=== PATIENT | female | born 1975 | race Caucasian/White ===

== ENCOUNTER 2016-09-13 09:51 | Emergency (ER) | payer OTHER ==
[2016-09-13 10:04] VITALS: BP 130/73
--- NOTE | 2016-09-13 10:15 | UC ---
Complaint Female HPI - HPI Summary HPI Summary: right flank pain since yesterday. No fever. Hx kidney stones. Never needed retrieval of stones. No urinary symptoms. - History Of Current Complaint Chief Complaint: UCGU Stated Complaint: RIGHT BACK PAIN Time Seen by Provider: 09/13/16 10:14 Hx Obtained From: Patient Hx Last Menstrual Period: N/A ?: No Onset/Duration: Gradual Onset, Lasting Days, Still Present Timing: Constant Severity Initially: Moderate Pain Intensity: 8 Pain Scale Used: 0-10 Numeric Character: Sharp Aggravating Factor(s): Nothing Alleviating Factor(s): Nothing Associated Signs And Symptoms: Negative: Fever, Back Pain, Vaginal Bleeding/ Discharge, Vaginal Discharge, Nausea, Vomiting(# Of Episodes =) Related Hx: Similar Episode/Dx as: - kidney stones - Risk Factors Ectopic Risk Factor: Negative Ovarian Torsion Risk Factor: Negative - Allergies/Home Medications Allergies/Adverse Reactions: Allergies Allergy/AdvReac Type Severity Reaction Status Date / Time Doxycycline AdvReac Intermediate Vomiting Verified 09/13/16 09:58 Erythromycin AdvReac Intermediate Vomiting Verified 09/13/16 09:58 CT DYE Allergy Itching Uncoded 09/13/16 09:58 PMH/Surg Hx/FS Hx/Imm Hx Cardiovascular History Of: Denies: Cardiac Disorders Respiratory History Of: Reports: COPD, Asthma GI/ History Of: Reports: Kidney Stones Neurological History Of: Reports: Migraine Psychological History Of: Reports: Anxiety, Depression - Surgical History Surgical History: Yes Surgery Procedure, Year, and Place: HYSTERECTOMY, FB RIGHT KNEE 03/2015. APPENDIX. KNEE 94' - Family History Known Family History: Positive: Cardiac Disease, Hypertension, Diabetes, Other - mom and sister postive for DVT - Social History Occupation: Employed Full-time Alcohol Use: None Substance Use Type: None Smoking Status (MU): Heavy Every Day Tobacco Smoker Type: Cigarettes Amount Used/How Often: 1 PPD Length of Time of Smoking/Using Tobacco: 18 YRS Have You Smoked in the Last Year: Yes Household Exposure Type: Cigarettes - Immunization History Most Recent Influenza Vaccination: 2016 Most Recent Tetanus Shot: 12/21/13 Most Recent Pneumonia Vaccination: none Review of Systems Constitutional: Negative Skin: Negative Eyes: Negative ENT: Negative Respiratory: Cough Cardiovascular: Negative Gastrointestinal: Negative Genitourinary: Negative Motor: Negative Neurovascular: Negative Musculoskeletal: Other: - right flank pain Neurological: Negative Psychological: Negative All Other Systems Reviewed And Are Negative: Yes Physical Exam Triage Information Reviewed: Yes Appearance: Well-Nourished, Ill-Appearing, Pain Distress Vital Signs: Initial Vital Signs Temp 99 F 09/13/16 09:59 Pulse 75 09/13/16 09:59 Resp 20 09/13/16 09:59 BP 130/73 09/13/16 09:59 Pulse Ox 98 09/13/16 09:59 Vital Signs Reviewed: Yes Eyes: Positive: Conjunctiva Clear ENT: Positive: Normal ENT inspection Neck: Positive: Supple, Nontender Respiratory: Positive: Lungs clear, Normal breath sounds, No respiratory distress Cardiovascular: Positive: RRR, No Murmur, Pulses Normal, Brisk Capillary Refill Abdomen Description: Positive: Nontender, Soft, CVA Tenderness (R). Negative: Distended, Guarding, McBurney's Point Tenderness, Peritoneal Signs, Pulsatile Mass Bowel Sounds: Positive: Present Musculoskeletal: Positive: Strength Intact, ROM Intact Neurological Exam: Normal Neurological: Positive: Alert, Muscle Tone Normal Psychological Exam: Normal Skin Exam: Normal Complaint Female Dx - Course Course Of Treatment: CT abd pelvis shows right lower lobe infiltrate. no hydronephrosis, no nephrolithiasis or ureterolithiasis. UA with blood and wbc' s. Will treat with levaquin that will treat pneumonia (infiltrate) and UTI. Pt advised of black box warning and QT prolongation. Advised to stop immediately if any side effects. - Differential Dx/Diagnosis Differential Diagnosis/HQI/PQRI: Renal Colic, Urinary Tract Infection, Other - pyelonephritis, pneumonia Provider Diagnoses: right lower lobe infiltrate. right flank pain. UTI. tobacco abuse disorder Discharge - Discharge Plan Condition: Stable Disposition: HOME Prescriptions: HYDROcodone/ACETAMIN 5-325 MG* [[place] 5-325 TAB*] 1 tab PO Q6H PRN #12 tab MDD 4 PRN Reason: Pain Levofloxacin TAB* [Levaquin TAB*] 750 mg PO DAILY #7 tab Patient Education Materials: Kidney Stones (ED), Urinary Tract Infection in Women (ED), Bacterial Pneumonia (ED) Forms: *Work Release Referrals: Braden Lawrence MD [Medical Doctor] - 7 Days No Primary Care Phys,NOPCP [Primary Care Provider] - Rahul Foreman MD [Medical Doctor] - 7 Days
[2016-09-13] MEDS ORDERED: Ketorolac INJ* 60 MG/2 ML VIAL ONE (10:22)
[2016-09-13] MEDS ORDERED: Ketorolac INJ* 60 MG/2 ML VIAL IM ONE (10:23)
[2016-09-13] MEDS ORDERED: Ondansetron ODT TAB* 4 MG PO ONE (10:28)
[2016-09-13] MEDS ORDERED: Ondansetron ODT TAB* 4 MG ONE (10:29)
--- NOTE | 2016-09-13 11:20 | RAD ---
INDICATION: Right flank abdominal pain. COMPARISON: Comparison is made with a prior CT of the abdomen and pelvis from June 03, 2016. TECHNIQUE: A CT scan of the abdomen and pelvis was performed without intravenous or oral contrast. Contiguous axial sections were obtained from the lung bases through the symphysis pubis. Images were reconstructed in the coronal and sagittal planes. FINDINGS: Images through the lung bases demonstrate a small infiltrate in the posterior aspect of the right lower lobe. No pleural effusion is seen. The liver appears mildly enlarged without significant focal abnormality on this noncontrast study. The spleen is within normal limits. No calcified gallstones are noted. The pancreas appears to be within normal limits. The adrenal glands and kidneys are normal in size. No renal calculi or hydronephrosis is seen. No ureteral or bladder calculi are seen. The aorta is normal in caliber with mild calcific plaque present. No significant enlarged retroperitoneal lymph nodes are seen. The stomach, small and large bowel appear nondistended. The patient is status post appendectomy by history. There is no evidence for diverticulitis or colitis. No free intraperitoneal air or fluid is seen. No significant focal osseous abnormality is seen. IMPRESSION: 1. SMALL RIGHT LOWER LOBE INFILTRATE. 2. NO EVIDENCE FOR ACUTE FINDING IN THE ABDOMEN.
== END 2016-09-13 11:56 | disposition home or self-care (01) ==
LOC: UCCORT 09:51
DX: R91.8 Other nonspecific abnormal finding of lung field (principal); N39.0 Urinary tract infection, site not specified; M54.9 Dorsalgia, unspecified; J44.9 Chronic obstructive pulmonary disease, unspecified; J45.998 Other asthma; F41.9 Anxiety disorder, unspecified; F33.8 Other recurrent depressive disorders; G43.909 Migraine, unspecified, not intractable, without status migrainosus; Z87.442 Personal history of urinary calculi; F17.210 Nicotine dependence, cigarettes, uncomplicated; Z91.041 Radiographic dye allergy status; Z88.1 Allergy status to other antibiotic agents
CPT/HCPCS: 74176; 87086; 99212; A9270-GY; G0463; J1885

== ENCOUNTER 2017-10-23 10:53 | Emergency (ER) | payer BC, OTHER | END 2017-10-23 21:50 | disposition left against medical advice (07) | LOC: UCCORT 10:53 | DX: N39.9 Disorder of urinary system, unspecified (principal); M54.9 Dorsalgia, unspecified; Z53.21 Procedure and treatment not carried out due to patient leaving prior to being seen by health care provider ==

== ENCOUNTER 2017-10-23 11:57 | Observation (INO) | payer BC, OTHER ==
[2017-10-23] MEDS ORDERED: HYDROmorphone INJ* 2 MG/ML CARPUJECT SYRINGE IV SLOW PU ONE ×3 (13:11→18:39)
[2017-10-23] MEDS ORDERED: Metoclopramide IV* 5 MG/ML 2 ML VIAL IV ONE (13:11)
--- NOTE | 2017-10-23 13:44 | ED ---
Back Pain - HPI Summary HPI Summary: Pt here w/ lower pelvic pain and urinary retention starting 2 days ago. Noticed incomplete emptying of her bladder 2 days ago - reports she was trying to change position to see if she could urinate more out but this did not help. Today, she's not been able to urinate at all - very painful. Denies this ever happening before and no symptoms of dysuria, urinary frequency leading up to this event. She has had Rt LE pain intermittently over the past 2 weeks as well - denies numbness, tingling, weakness here and no numbness when she wipes her herself. No fecal incontinence. She admits to central low back pain which is being worked up by her PCP - reports her pain was bad about 1 month ago so she went for an appointment. They provided her with flexeril which provided some relief. Since then she's been using heat which helps. An MRI was ordered 2 weeks ago by her [employer] (performed at [facility] - no results as of yet and no f/u appt scheduled - reports they were going to call her with results and she has not received them yet). We were able to attain the report - summary in Course of Treatment. No injury immediately before or after MRI Denies fever, chills, LEAL, neck pain, thoracic back pain, UE's numbness/tingling/ weakness, chest pain, shortness of breath, nausea, vomiting, diarrhea. She had abdominal pain. She admits to JOSE MIGUEL years ago - no issues w/ bladder incontinence, UTI's, vaginal infections, or fullness in vagina. Her JOSE MIGUEL was for endometriosis. She admits to dyspareunia past couple of months. No h/o cancer. Other ab sugery hx significant for hernia repair. No residual issues. She has asthma, dentures. No cardiac issues nor bleeding/clotting disorders. No previous issues with anesthesia. Med hx significant for psoriatic arthritis. Was on humira in the past but has not been on this for 2 years now - uses tanning bed to keep skin clear. Has not been on prednisone or other pain meds. Her routine meds include: zoloft, trazodone, mirapex, albuterol HFA - History of Current Complaint Chief Complaint: EDUrogenitalProblems Stated Complaint: ABD PAIN Time Seen by Provider: 10/23/17 12:29 Hx Obtained From: Patient, Family/Anesthesia Attending - famale electric organ assembler w/ her Hx Last Menstrual Period: N/A Pain Intensity: 10 - Allergies/Home Medications Allergies/Adverse Reactions: Allergies Allergy/AdvReac Type Severity Reaction Status Date / Time doxycycline Allergy Nausea And Verified 10/23/17 12:20 Vomiting erythromycin base Allergy Nausea And Verified 10/23/17 12:[address] DYE Allergy Itching Uncoded 10/23/17 12:20 Home Medications: Home Medications Cyclobenzaprine TAB* [Flexeril 10 MG TAB*] 10 mg PO TID 10/23/17 [History Confirmed 10/23/17] Pramipexole TAB* [Mirapex TAB*] 0.125 mg PO BEDTIME 10/23/17 [History Confirmed 10/23/17] celeCOXIB CAP* [CeleBREX CAP*] 100 mg PO DAILY 10/23/17 [History Confirmed 10/23] PMH/Surg Hx/FS Hx/Imm Hx Previously Healthy: Yes Endocrine/Hematology History: Reports: Autoimmune Disease - psoriatic arthritis Denies: Hx Anticoagulant Therapy, Hx Blood Disorders, Hx Thyroid Disease, Hx Anemia, Hx Unexplained Bleeding, Hx Coagulopothy Cardiovascular History: Denies: Hx Aneurysm, Hx Atrial Fibrillation, Hx Hypertension, Hx Myocardial Infarction, Hx Valvular Heart Disease Respiratory History: Reports: Hx Asthma, Hx Chronic Obstructive Pulmonary Disease (COPD) - smokes 1ppd GI History: Reports: Hx Diverticulosis, Hx Gastroesophageal Reflux Disease, Other GI Disorders - Pancreatitis History: Reports: Hx Kidney Stones Musculoskeletal History: Reports: Hx Arthritis - psoriatic arthritis, Hx Back Problems - lumbar/sacral arthritis, DDD Neurological History: Reports: Hx Migraine Denies: Hx Headaches, Hx Nerve Disease, Hx Peripheral Neuropathy, Hx Spinal Cord Injury Psychiatric History: Reports: Hx Anxiety, Hx Depression - Surgical History Surgery Procedure, Year, and Place: HYSTERECTOMY, FB RIGHT KNEE 03/2015. APPENDIX. KNEE 94' - Immunization History Date of Tetanus Vaccine: 2012 Date of Influenza Vaccine: 04/19/16 Infectious Disease History: Unable to Obtain/Confirm Infectious Disease History: Reports: Hx of Known/Suspected MRSA - knee Denies: Hx Shingles, Traveled Outside the [place] in Last 30 Days - Family History Known Family History: Positive: Cardiac Disease, Hypertension, Diabetes, Other - mom and sister postive for DVT - Social History Lives: With Family Alcohol Use: None Hx Substance Use: No Substance Use Type: Reports: None Hx Tobacco Use: Yes Smoking Status (MU): Current Every Day Smoker Type: Cigarettes Amount Used/How Often: 1 PPD Length of Time of Smoking/Using Tobacco: 18 YRS Have You Smoked in the Last Year: Yes Review of Systems Constitutional: Negative Negative: Fever, Chills, Fatigue Eyes: Negative ENT: Negative Cardiovascular: Negative Respiratory: Negative Positive: Abdominal Pain. Negative: Vomiting, Diarrhea, Nausea Positive: see HPI Positive: Arthralgia, Myalgia, Decreased ROM Skin: Negative Positive: Paresthesia - Rt LE noted upon exam - this was not offered at inquiry Positive: Anxious All Other Systems Reviewed And Are Negative: Yes Physical Exam Triage Information Reviewed: Yes Vital Signs On Initial Exam: Initial Vitals Temp Pulse Resp BP Pulse Ox 99 F 93 22 140/96 94 10/23/17 12:17 10/23/17 12:17 10/23/17 12:17 10/23/17 12:17 10/23/17 12:17 Vital Signs Reviewed: Yes Appearance: Positive: Well-Appearing, Well-Nourished, Pain Distress Skin: Positive: Warm, Skin Color Reflects Adequate Perfusion, Dry Head/Face: Positive: Normal Head/Face Inspection Eyes: Positive: Normal, EOMI, Conjunctiva Clear - anicteric sclera ENT: Positive: Hearing grossly normal, Pharynx normal - dry oral mucosa Neck: Positive: Supple, Nontender - FROM w/o pain or restriction Respiratory/Lung Sounds: Positive: Breath Sounds Present Cardiovascular: Positive: Normal, Pulses are Symmetrical in both Upper and Lower Extremities. Negative: Leg Edema Left, Leg Edema Right Abdomen Description: Positive: Guarding Pelvic Exam: Positive: external exam normal. Negative: active bleeding Musculoskeletal: Positive: Limited @ - Pain in back w/ Rt LE movement, transitioning from lying to sitting or any movements of RLE Neurological: Positive: Alert, Oriented to Person Place, Time, CN Intact II-III , Reflexes Intact - B/L +2 pateller reflexes - could not elicit achilles tendon reflexes B/L; strength 5/5 on Lt LE - 4/5 Rt dorsiflexion; 3/5 Rt plantar flexion; 3-4/5 Rt hip flexion; 3-4/5 knee flexion; Babinski equivocal B/L (no repsonse but pt reports feeling my stimulation the multiple times I attempted test). Negative: Sensory/Motor Intact Psychiatric: Positive: Anxious - d/t pain - once pain is controlled, anxiety reduced - she is calm and cooperative Diagnostics - Vital Signs Vital Signs Temp Pulse Resp BP Pulse Ox 10/23/17 13:26 18 10/23/17 12:17 99 F 93 22 140/96 94 - Laboratory Result Diagrams: 10/23/17 13:39 10/23/17 13:39 Lab Statement: Any lab studies that have been ordered have been reviewed, and results considered in the medical decision making process. Re-Evaluation - Re-Evaluation First Eval Change: Improved - pain improved s/p Winkler Catheter placement - this took 3 attempts (may have contributed to findings on UA or patient may have a urinary tract infection). Pain starting to return 2 hours after Dilaudid administration will order more as this was helpful and did not cause ill effects Second Eval Change: Improved - Pain improved again with second round of Dilaudid. Back Pain Course/Dx - Course Course Of Treatment: Pt here w/ urinary retention - prescan of bladder reveals ~ 1600cc - Winkler placed after 3rd attempt (1st 2 met resistance) - immediate return of clear urine w/ significant outpt within minutes. Pt developed worsening of back pain once bladder was relieved - bag was clamped to prevent spasm and ordered diluadid IV for back pain which provided relief. Further neuro exam found decreased rectal tone, paresthesia and weakness in Rt LE along with persistent back pain w/ any movement of her core and Rt LE. Discussed sx and initial clinical concern w/ Neurosurg Mary VALENTINE @13:30 - aware of case and pending lumbar MRI w/o contrast. Spoke w/ Dr. Lancaster @ 13:35 - will make MRI STAT. Patient's MRI w/o contrast report from [facility] performed on 10/11/2017. Impression: "Mild degenerative spondylosis. Modic type degenerative changes noted adjacent to L5-S1 intervertebral disc space. At L3-L4 right paracentral/right lateral disc protrusion is seen resulting in moderate right lateral recess narrowing and severe right neural foraminal narrowing. Broadbase disc protrusion L5-S1 and mild degenerative spondylosis that (is) resulting in moderate bilateral lateral lateral recess narrowings and mild central canal stenosis. Disc bulging and degenerative spondylosis of L4- L5 resulting in moderate bilateral lateral recess narrowing without central canal stenosis. Disc bulging and degenerative spondylosis L2-L3 resulting in mild bilateral lateral recess narrowings. Note: In the body of the report, conus medullaris of spinal cord is normal in appearance. Report read by Mae Schafer M.D.". MRI report here today. Impression: "1. Mild degenerative disc disease and osteoarthritis. 2. There is right-sided neural foraminal narrowing at L3-L4 and L4-L5. 3. There is a small broad-based right-sided disc protrusion at L3-L4. 4. There is no significant central canal stenosis. Spinal cord, conus and cauda equina: The visualized spinal cord conus and cauda equina are normal caliber position and signal intensity". Discussed MRI findings along w/ clinical findings w/ Mary, neurosurgery PA. She reports no indication for further consult. Spoke w/ Dr. Connell who advises speaking directly with Dr. Greenwood to make sure he's aware of all clinical sx as pt has no h/o urinary retention or fecal incontinence, her current medications do not cause urinary retention and she has h/o lumbosacral DDD w/ Rt LE weakness corresponding w/ findings on MRI. Dr. Greenwood eventually returned call and agrees no neurosurgial intervention necessary. Spoke w/ Dr. García who does not feel her volume of retained urine correlates w/ bladder prolapse (diff dx as she is s/p JOSE MIGUEL) but suggests possibly pelvic mass may be contributing factor. She does have a h/o endometriosis and reports dyspareunia in the past 2 months so this may be arranged to rule out pelvic pathology. Another diff dx discussed is demyelinating condition. Pt denies fam h/o neurological pathologies family. Furthermore, spoke w/ Dr. Hurst, who feels if pt has pain or sx anywhere else in her spine, a full spine series should be evaluated to assess for MS or other lesions causing her sx. Since pt denies these sx, Dr. Hurst agrees to consult on pt once she's admitted. Discussed case with Dr. Connell who does not feel pelvic w/u is necessary in ED although brief/limited external exam is not impressive for bleeding/prolapse. Pt admitted under Dr. Abdul for urinary retention of unknown cause with differential diagnoses as mentioned above. Pt's pain is improved and stable at time of admission. NOTE: pt smokes 1 PPD and requests to smoke. Offered nicotrol inhaler which she agrees to try. - Diagnoses Provider Diagnoses: Acute urinary retention, Decreased rectal sphincter tone, Lumbar radiculopathy , right Discharge - Sign-Out/Discharge Documenting (check all that apply): [place] [facility] [place] Condition: Stable Disposition: ADMITTED TO [facility] - Billing Disposition and Condition Condition: STABLE [place] [place]
[2017-10-23 13:50] LABS: ABS Basophils 0 10^3/ul (0-0.2); ABS Eosinophils 0.2 10^3/ul (0-0.6); ABS Lymphocytes 2.1 10^3/ul (1.0-4.8); ABS Monocytes 0.4 10^3/ul (0-0.8); ABS Neutrophils 2.9 10^3/ul (1.5-7.7); ABS Nucleated RBC 0 10^3/ul; Eosinophil % 3.4 % (0-6); Hematocrit 38 % (35-47); Lymphocyte % 36.9 % (25-47); Mean Corpuscular HGB Conc 34 g/dl (31-36); Mean Corpuscular Hemoglobin 31 pg (27-31); Mean Corpuscular Volume 90 fL (80-97); Nucleated Red Blood Cells % 0; Platelet Count 241 10^3/ul (150-450); Red Blood Count 4.19 10^6/ul (4.0-5.4); Red Cell Distribution Width 14 % (10.5-15); White Blood Count 5.6 10^3/ul (3.5-10.8)
[2017-10-23 13:59] LABS: INR 1.03 (0.77-1.02)
[2017-10-23 14:08] LABS: EGFR Non-African American 82.7 (>60)
--- NOTE | 2017-10-23 14:45 | RAD ---
HISTORY: Cauda equina syndrome, decreased rectal tone, urinary retention COMPARISONS: None TECHNIQUE: The following sequences were obtained of the lumbar spine: Sagittal and axial T1- and T2-weighted images, coronal T2-weighted images, and sagittal STIR images. FINDINGS: The study is limited by patient motion artifact. SPINAL CORD, CONUS, AND CAUDA EQUINA: The visualized spinal cord, conus, and cauda equina are normal in caliber, position, and signal intensity. ALIGNMENT: The alignment is normal. VERTEBRAL BODIES: There are mild Modic degenerative end plate changes at L5-S1. JOINTS: There is mild facet osteoarthritis along the lower lumbar spine. MUSCULATURE: There is mild fatty infiltration INTERVERTEBRAL DISCS: There is mild diffuse loss of intervertebral disc height and T2 signal throughout the spine, more pronounced at L5-S1 and L3-L4.. AXIAL IMAGES: T11-T12: There is no significant neural foraminal narrowing or central canal stenosis. T12-L1: There is no disc herniation, spinal stenosis, or neuroforaminal narrowing. L1-L2: There is no disc herniation, spinal stenosis, or neuroforaminal narrowing. L2-L3: There is no disc herniation, spinal stenosis, or neuroforaminal narrowing. L3-L4: There is a broad-based right lateral recess disc protrusion measuring 0.2 cm in depth. There is mild right neural foraminal narrowing. There is no significant central calcinosis. L4-L5: There is an annular fissure extending along the right neural foramen. There is bilateral facet hypertrophy. There is mild right neural foraminal narrowing. There is no significant central canal stenosis. L5-S1: There is bilateral facet hypertrophy. There is marginal osteophyte formation at the neural foramina bilaterally. There is no significant neural foraminal narrowing or central canal stenosis. SOFT TISSUES: The visualized soft tissues of the abdomen are unremarkable. OTHER: None. IMPRESSION: 1. MILD DEGENERATIVE DISC DISEASE AND OSTEOARTHRITIS. 2. THERE IS RIGHT-SIDED NEURAL FORAMINAL NARROWING AT L3-L4 AND L4-L5. 3. THERE IS A SMALL BROAD-BASED RIGHT-SIDED DISC PROTRUSION AT L3-L4. 4. THERE IS NO SIGNIFICANT CENTRAL CANAL STENOSIS.
[2017-10-23 17:06] LABS: Urine Appearance Clear; Urine Blood 2+ (Negative); Urine Color Straw; Urine Ketones Negative (Negative); Urine Protein Negative (Negative); Urine Specific Gravity 1.002 (1.010-1.030); Urine Urobilinogen Negative (Negative)
[2017-10-23] MEDS ORDERED: Nicotine Inhaler* 10 MG AMP INH PRN (18:38)
[2017-10-23] MEDS ORDERED: Mouth Piece, Nicotine* 1 EACH CARTRIDGE INH ONE (18:38)
[2017-10-23] MEDS ORDERED: Ketorolac INJ* 30 MG/ML 1 ML VIAL IV PUSH PRN (20:09)
[2017-10-23] MEDS ORDERED: Acetaminophen TAB* 325 MG PO PRN (20:09)
[2017-10-23] MEDS ORDERED: Magnesium Sulfate 2 GM IV* 2 GM/50 ML BAG IVPB ONE (20:34)
[2017-10-23] MEDS ORDERED: Albuterol 2.5 MG/3 ML NEB.SOL* (0.083%) INH PRN (20:39)
[2017-10-23] MEDS ORDERED: predniSONE TAB* 20 MG ONE (20:41)
[2017-10-23] MEDS ORDERED: Lidocaine Patch REMOVE* 1 NOTE MISC SCH (21:00)
[2017-10-23] MEDS ORDERED: Pramipexole TAB* 0.125 MG PO SCH (21:00)
[2017-10-23] MEDS ORDERED: traZODone TAB* 100 MG PO SCH (21:00)
[2017-10-23] MEDS ORDERED: Sertraline* 100 MG TAB PO SCH (21:00)
[2017-10-23] MEDS ORDERED: predniSONE TAB* 20 MG PO SCH ×2 (21:00→21:15)
[2017-10-23] MEDS: Ondansetron INJ* 2 MG/ML VIAL IV PRN (22:22)
[2017-10-23] MEDS: Omeprazole CAP* 20 MG PO SCH (22:37)
[2017-10-24] MEDS: Ondansetron INJ* 2 MG/ML VIAL IV PRN (03:39)
[2017-10-24 05:45] LABS: INR 1.02 (0.77-1.02)
[2017-10-24 05:59] LABS: EGFR Non-African American 72.7 (>60)
[2017-10-24 06:23] LABS: ABS Basophils 0 10^3/ul (0-0.2); ABS Eosinophils 0 10^3/ul (0-0.6); ABS Lymphocytes 0.8 10^3/ul (1.0-4.8); ABS Monocytes 0 10^3/ul (0-0.8); ABS Neutrophils 5.2 10^3/ul (1.5-7.7); ABS Nucleated RBC 0 10^3/ul; Eosinophil % 0.3 % (0-6); Hematocrit 40 % (35-47); Hemoglobin 13.2 g/dl (12.0-16.0); Lymphocyte % 13.2 % (25-47); Mean Corpuscular HGB Conc 33 g/dl (31-36); Mean Corpuscular Hemoglobin 31 pg (27-31); Mean Corpuscular Volume 92 fL (80-97); Mean Platelet Volume 7.2 um3 (7.4-10.4); Nucleated Red Blood Cells % 0.1; Platelet Count 238 10^3/ul (150-450); Red Blood Count 4.32 10^6/ul (4.0-5.4); Red Cell Distribution Width 14 % (10.5-15); White Blood Count 6.1 10^3/ul (3.5-10.8)
--- NOTE | 2017-10-24 06:41 | HP ---
CC: Dr. Marrero * HISTORY AND PHYSICAL: DATE OF ADMISSION: 10/23/17 PRIMARY CARE PROVIDER: Dr. Marrero. ATTENDING PHYSICIAN WHILE IN THE HOSPITAL: Dr. Ariella Xie * (report dictated by Nick Gallego NP). CHIEF COMPLAINT: Lower back pain. HISTORY OF PRESENT ILLNESS: Ms. Chaudhry is a 42-year-old female patient. She carries a history of psoriatic arthritis, cellulitis, ankylosing spondylitis, asthma, anxiety, GERD, and history of migraines, who comes in to our ER today. She says that in 2011, she has been having issues with her lower back off and on intermittently. The last month, she had a flare-up. Recently, early since February, she has had more episodes of having back pain. She started a new job where she is doing a lot of lifting. She said that in the last 3 to 4 weeks, she has had back discomfort that really started 3 to 4 weeks ago. She went and sought care with her PCP in [facility] according to the patient, she was started on medications and antiinflammatories, she said she had been given some steroids, Flexeril, she was feeling better. She did not take in the meds for over 2 weeks, but then the last 3 days, she got pain. She says it is right above her buttocks, mostly it would radiate into her right hip and down the outside portion of her right leg. She said, she started taking her Flexeril again, started taking her antiinflammatory hoping that things would get better. Unfortunately, last night, she started having trouble with urination. She noted that she was having a hard time initiating her flow and then she noted today that she could not go at all, so she was concerned and came into the ER immediately. She denied having any incontinence of the bowel. No numbness in the saddle area and she denied having any numbness into the feet. She did admit to having decreased sensation along the right outside part of her leg. She said that she has had difficulty walking mostly though because she has had this pain. She has pain when she goes to move her leg, particularly on the right side that reproduces the pain in her lower back and then the pain starts shooting down her leg. She says that that she has not had any visual trouble, she has not had any pain in her neck, no trunk numbness, no pain in the trunk or the middle of the back or the thoracic area, no pain in the neck and no numbness or tingling to the upper extremities. She does note that in the past, she has had trouble initiating her urinary stream particularly in the setting of her taking medications for her back and one of them being Flexeril. She denied any recent narcotics, denied any recent over- the-counter medications and she said when she came in, was evaluated here in the ED, there was concern because of urinary retention, there was also concern for decreased rectal tone and there was concern for the back pain. Because of these, we were asked to evaluate for admission. PAST MEDICAL HISTORY: Significant for: 1. Psoriatic arthritis. 2. Cellulitis in the past. 3. Ankylosing spondylitis. 4. Asthma. 5. Anxiety. 6. GERD. 7. Migraines. PAST SURGICAL HISTORY: She has had: 1. Hysterectomy. 2. Hernia repair. HOME MEDICATIONS: Include: 1. Mirapex 0.125 mg p.o. at bedtime. 2. Advil 800 mg every 6 hours as needed. 3. Celebrex 100 mg daily. 4. Zoloft 200 mg p.o. daily. 5. Flexeril 10 mg p.o. t.i.d. 6. Trazodone 100 to 200 mg p.o. at bedtime. ALLERGIES TO MEDICATIONS: Include DOXYCYCLINE and ERYTHROMYCIN. FAMILY HISTORY: Mother had COPD, father's history is unknown. SOCIAL HISTORY: She is a pack-a-day smoker for about 25 years. She does not drink alcohol. Surrogate decision maker is her . REVIEW OF SYSTEMS: There is no documented fever. She denied having any significant weight change. There was no double vision. She denies having any ear discharge. There has been no rhinorrhea. No sore throat. No thyroid enlargement. She denies having any chest pain. There has been no orthopnea, no nocturnal dyspnea. There is no abdominal pain. There has been no nausea, no vomiting. There has been no dysuria, there has been no frequency. There has been no seizure, no loss of consciousness, no pruritus, and no skin ulcerations. Review of 14 systems completed, all others negative. PHYSICAL EXAMINATION GENERAL: At this time, Ms. Chaudhry is a 42-year-old female patient, she appears to be well nourished, well developed. She is sitting in the ED stretcher. She appears to be in pain, particularly radiating from her back subjectively according to the patient, but does not appear to be in any acute respiratory distress. VITAL SIGNS: Blood pressure 140/70, pulse 67, respirations 16, O2 sat 92%, temperature was 98.4. HEENT: Head is atraumatic, normocephalic. Eyes: EOMs are intact. Sclerae anicteric and not pale. Throat: Oral mucosa appears to be moist. No oropharyngeal erythema. NECK: Supple. LUNGS: Clear to auscultation bilaterally. No wheezes, rales or rhonchi. HEART: Sounds S1, S2. Regular rate and rhythm. No murmurs, rubs, or gallops. ABDOMEN: Soft, flat, nontender. Bowel sounds were present. EXTREMITIES: Pulses were 2+ throughout. She can move the upper extremities with 5/5 strength and lower extremities, she does have 5/5 strength, but she limits her, it is a difficult exam, because when she goes to extend at the knee or flex at the knee or any hip flexion or extension, it reproduces the pain that starts in her lower lumbar spine and goes down the right side of her leg. On dorsi and plantar flexion, she has 5/5 strength at this point. She has decreased sensation along the right lateral aspect of her right lower extremity only. NEUROLOGIC: She is awake, alert, oriented x3. Tongue midline. Delivery Stock Clerk were equal. No gross focal deficits with the exception of paresthesia along the right side of her leg that she is having. She again denies any numbness in the groin area and there was no foot drop and deep tendon reflexes into the knees were 2+ and no other gross focal deficits. SKIN: Intact. DIAGNOSTIC STUDIES/LAB DATA: WBC is 5.6, RBC of 4.19, hemoglobin of 13.0, hematocrit of 38, platelet count of 241. INR 1.03, PTT of 32.9. Sodium 136, potassium 4.1, chloride 108, bicarb 24, BUN 9, creatinine 0.76, glucose 90, lactate 0.8, her mag was 1.7. Total bilirubin 0.3, AST 17, ALT 12, alk phos 67. CRP is 3.26. Lipase normal. Urine showed 2+ blood, 1+ bacteria. She had a lumbar spine MRI, they said mild degenerative disk and osteoarthritis , there is right-sided neural foraminal narrowing at L3-4, L4-5. There is a small broad-based right-sided disk protrusion at L3-4. There was no significant central canal stenosis. She had an EKG obtained today that shows normal sinus rhythm, rate of 66, no ST elevation or T-wave inversions are noted. She actually had an MRI done just 2 weeks ago that showed mild degenerative spondylosis at L3-4, paracentral right lateral disk protrusion is seen resulting in moderate right lateral recess narrowing and severe right neural foraminal narrowing, broad-based disk protrusion at L5-S1, mild degenerative spondylosis that has resulted in mild bilateral lateral recess narrowing and mild central canal stenosis, disk bulging, degenerative spondylosis at L4-5 resulting in moderate bilateral recess narrowing without central canal stenosis , disk bulging, and degenerative spondylosis at L2-3 resulting in mild recess narrowing. Old medical records were reviewed. ASSESSMENT AND PLAN: Ms. Chaudhry is a 42-year-old female patient coming into the ED today with complaints of urinary retention and back pain. We were asked to evaluate for admission. She will be admitted under observation status for: 1. Lumbar radiculopathy. Again, at this point, she is moving the legs bilaterally. I think the exam is limited on the right side, because it is causing her a significant amount of pain, it is radiating from the lumbar spine down her right lower extremity on the lateral aspect. Our plan would be to go ahead and start Lidoderm patch, go ahead and put her on steroids, 60 of prednisone now, and then put her on a burst, she said this has helped in the past, IV Toradol for pain, try to avoid narcotics, get PT involved and continue to monitor. Should she not improve, consider neurosurgical input. But at this point, there is no central canal stenosis based on her MRI from [facility] and we will continue to follow. Already, she is seeing [facility], she can follow with them. 2. Urinary retention. This has happened before and is probably in the setting of the Flexeril, which can certainly cause urinary retention. So, this med is going to be stopped, she will remove the Winkler tomorrow, start postvoid residuals. If she is still retaining, then I would certainly get Neurology input to make sure that she does not have any other underlying deficits that may be contributing to this and also Urology input, but again, it could be related to medications. We are going to try to avoid narcotics. 3. History of psoriatic arthritis and history of ankylosing spondylitis. She can follow with her PCP. At this point, we will continue her current medical regimen. 4. History of asthma. I will order p.r.n. nebs for the patient should she need them. 5. Gastroesophageal reflux disease. I have ordered a PPI particularly in the setting of NSAIDs and the steroid. 6. History of migraines. P.r.n. Tylenol is available. 7. DVT prophylaxis. I have ordered SCDs. 8. Code status. Full code. 9. Fluids, electrolytes, and nutrition. She can have a regular diet. TIME SPENT: On the admission was 50 minutes; greater than half the time spent face- to-face with the patient obtaining my history and physical, other half of the time spent going over the plan of care with the patient and implementing the plan of care. I did discuss the plan of care with my attending, Dr. Xie; she is in agreement. NICK GALLEGO NP [id number]/[facility] #: [id number] RAVI
[2017-10-24 07:42] VITALS: BP 110/61
[2017-10-24] MEDS: Omeprazole CAP* 20 MG PO SCH (08:16)
[2017-10-24] MEDS ORDERED: Lidocaine PATCH 5%* 1 PATCH TRANSDERM SCH (09:00)
--- NOTE | 2017-10-25 01:41 | DS ---
DISCHARGE SUMMARY: DATE OF ADMISSION: 10/23/17 DATE OF DISCHARGE: 10/24/17 ADMITTING PROVIDER: Bong Gallego NP PRIMARY CARE PHYSICIAN: Dr. Marrero. ATTENDING PHYSICIAN: Murphy Avendaño MD OUTPATIENT DEHYDRATION PLANT OPERATOR: Dr. Elma Nieto. OUTPATIENT SPINE DOCTORS: [facility], [facility]. CHIEF COMPLAINT: Lower back pain, urinary retention. PRINCIPAL DIAGNOSES: Low back pain, sciatica; urinary retention in the setting of Flexeril use and other serotonergic agents. 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 Symptoms started with a flare-up last month of her lower back pain which she has been having since 2011. She just started a new job at [employer] where she had been doing a lot of lifting and working up to 16 hours a day. She recently got a note limiting her lifting to more than 15 pounds from the [facility]. For the last 3 days, the back pain has gotten worse and she restarted taking Flexeril. Night of admission, she had trouble initiating her urinary flow and then could not urinate at all and presented to the ER, a Winkler was placed. There was some concern in the ER that she may have had a reduced rectal tone and presented for admission to the hospitalist service. She had an MRI of her lumbar spine which showed some mild degenerative disk disease and osteoarthritis, some right-sided neuroforaminal narrowing at L3-L4 and L4-L5, small broad-based right-sided disk protrusion at L3- L4. No significant central canal stenosis. She had previously had an MRI 2 weeks prior which showed mild degenerative spondylosis at L3-L4, paracentral right lateral disk protrusion resulting in moderate right lateral recess narrowing and severe right neuroforaminal narrowing and broad-based disk protrusion at L5-S1, some mild degenerative spondylosis, mild bilateral lateral recess narrowing, and mild central canal stenosis, disk bulging, degenerative spondylosis at L4-L5 resulting in moderate bilateral recess narrowing without central canal stenosis, disk bulging, and degenerative spondylosis at L2-L3 resulting in mild recess narrowing. The patient was given IV Toradol, Lidoderm patch, and her Flexeril was stopped. Her Winkler catheter was removed on morning of hospital day #2 and she was able to void a few hours later. She was anxious for discharge, in fact threatening to leave AMA if necessary to return home to her two autistic children who are in the care of her sister. Patient is being recommended to follow up with Dr. Marrero, her PCP, within 3 to 5 days and referral was sent to Dr. Elma Nieto, her greenhouse staff to put back in for her psoriatic arthritis and ankylosis spondylitis. She has wanted to restart Humira which she has not been on for 6 years. She was started on prednisone 60 mg daily for a short course. DISCHARGE MEDICATIONS: Include: 1. Pramipexole (Mirapex) 0.125 mg p.o. at bedtime. 2. Sertraline 200 mg p.o. at bedtime. 3. Trazodone 200 mg p.o. at bedtime for insomnia. 4. Celebrex 100 mg p.o. daily. 5. Ibuprofen 800 mg p.o. q. 6 hours p.r.n. 6. Lidocaine patch 5% (new) for 15 patches. 7. Prednisone 60 mg daily for 4 more days. DIET: No restrictions. ACTIVITY LEVEL: No lifting more than 15 pounds. She is also getting a work release until 10/28/17. FOLLOWUP: Please followup with Dr. Marrero within [address] Elma Nieto within 1 to 2 weeks, her greenhouse staff. TIME SPENT ON DISCHARGE: 35 minutes. [id number]/[facility] #: [id number] RAVI
== END 2017-10-24 11:10 | disposition home or self-care (01) ==
LOC: ED 11:57 → MED 19:49
PROVIDERS: ADMIT Pediatrics; ATTEND Internal Medicine
DX: M54.5 Low back pain (principal); M54.16 Radiculopathy, lumbar region; R33.9 Retention of urine, unspecified; R10.9 Unspecified abdominal pain; Z79.899 Other long term (current) drug therapy; L40.50 Arthropathic psoriasis, unspecified; M45.9 Ankylosing spondylitis of unspecified sites in spine; F41.9 Anxiety disorder, unspecified; J45.909 Unspecified asthma, uncomplicated; K21.9 Gastro-esophageal reflux disease without esophagitis; Z88.1 Allergy status to other antibiotic agents; Z91.041 Radiographic dye allergy status; F17.210 Nicotine dependence, cigarettes, uncomplicated; M19.90 Unspecified osteoarthritis, unspecified site
CPT/HCPCS: 36415; 72148; 80048; 80053; 81003; 81015; 83605; 83690; 83735; 85025; 85610; 85730; 86140; 87086; 93005; 96366; 96375; 96376; 99284; A9270-GY; G0378; J1170; J1885; J2405; J2765; J3475; J7512

== ENCOUNTER 2017-12-10 08:32 | Emergency (ER) | payer SELFPAY ==
[2017-12-10 09:00] VITALS: BP 158/63
--- NOTE | 2017-12-10 09:41 | RAD ---
INDICATION: Fall. Wrist pain COMPARISON: None TECHNIQUE: AP, lateral, and oblique views were obtained. FINDINGS: Positioning was limited due to the patient's acute injury. There is no convincing evidence of acute fracture. There is mild degenerative change but the radial carpal joint with an ulnar minus variant. There is diffuse soft tissue swelling about the distal forearm. IMPRESSION: MILDLY LIMITED EXAMINATION BUT NO DEFINITIVE ACUTE FRACTURE. DIFFUSE SOFT TISSUE SWELLING. SUGGEST FOLLOW-UP IMAGING INDICATED.
--- NOTE | 2017-12-10 10:00 | UC ---
Hand/Wrist HPI - HPI Summary HPI Summary: right wrist pain x 1 day s/p fall on her wrist yesterday pain and swelling of her right wrist - History Of Current Complaint Chief Complaint: UCUpperExtremity Stated Complaint: RT ARM INJURY Time Seen by Provider: 12/10/17 09:16 Hx Obtained From: Patient Hx Last Menstrual Period: N/A ?: No Onset/Duration: Sudden Onset, Lasting Days - 1, Still Present Severity Initially: Moderate Severity Currently: Moderate Pain Intensity: 7 Character Of Pain: Aching, Throbbing Aggravating Factor(s): Movement, Lifting, Flexion, Extension Alleviating Factor(s): Rest, Ice Associated Signs And Symptoms: Positive: Swelling, Redness, Bruising, Weakness - Allergies/Home Medications Allergies/Adverse Reactions: Allergies Allergy/AdvReac Type Severity Reaction Status Date / Time doxycycline Allergy Nausea And Verified 12/10/17 08:53 Vomiting erythromycin base Allergy Nausea And Verified 12/10/17 08:[address] DYE Allergy Itching Uncoded 12/10/17 08:53 PMH/Surg Hx/FS Hx/Imm Hx Previously Healthy: Yes Other History Of: Negative For: Anticoagulant Therapy - Surgical History Surgical History: Yes Surgery Procedure, Year, and Place: HYSTERECTOMY, FB RIGHT KNEE 03/2015. APPENDIX. KNEE 94' - Family History Known Family History: Positive: Cardiac Disease, Hypertension, Diabetes, Other - mom and sister postive for DVT - Social History Alcohol Use: None Substance Use Type: None Smoking Status (MU): Heavy Every Day Tobacco Smoker Type: Cigarettes Amount Used/How Often: 1 PPD Length of Time of Smoking/Using Tobacco: 18 YRS Have You Smoked in the Last Year: Yes Household Exposure Type: Cigarettes - Immunization History Most Recent Influenza Vaccination: 2016 Most Recent Tetanus Shot: 12/21/13 Most Recent Pneumonia Vaccination: none Review of Systems Constitutional: Negative Skin: Negative Eyes: Negative ENT: Negative Respiratory: Negative Cardiovascular: Negative Is Patient Immunocompromised?: No All Other Systems Reviewed And Are Negative: Yes Physical Exam Triage Information Reviewed: Yes Appearance: Well-Appearing, Well-Nourished, Pain Distress Vital Signs: Initial Vital Signs Temp 99 F 12/10/17 08:55 Pulse 75 12/10/17 08:55 Resp 18 12/10/17 08:55 BP 158/63 12/10/17 08:55 Pulse Ox 96 12/10/17 08:55 Vital Signs Reviewed: Yes Eyes: Positive: Conjunctiva Clear ENT: Positive: Normal ENT inspection, Hearing grossly normal, Pharynx normal Neck: Positive: Supple, Nontender, No Lymphadenopathy Respiratory: Positive: Chest non-tender, Lungs clear, Normal breath sounds Cardiovascular: Positive: RRR, No Murmur, Pulses Normal Musculoskeletal: Positive: Other: - right wrist: + swelling , + ecchymosis , diffuse tenderness, limited ROM due to pain Diagnostics - Laboratory Diagnostic Studies Completed/Ordered: xray right wrist: no frcture seen Hand/Wrist Course/Dx - Differential Dx/Diagnosis Provider Diagnoses: sprain right wrist. contusion right wrist Discharge - Sign-Out/Discharge Documenting (check all that apply): Discharge/Admit/Transfer - Discharge Plan Condition: Stable Disposition: HOME Prescriptions: Naproxen [Naproxen 500 mg tab] 500 mg PO BID #20 tablet Patient Education Materials: Contusion in Adults (ED), Wrist Sprain (ED) Forms: *Work Release Referrals: Erwin Marrero MD [Primary Care Provider] - 7 Days Additional Instructions: no fracture seen on the xrary cont. with rest, ice, take Naproxen 2 x per day for pain and inflammation use wrist splint, follow up with your pcp in one week , may need to repeat x ray if not improving - Billing Disposition and Condition Condition: STABLE Disposition: HOME
== END 2017-12-10 10:01 | disposition home or self-care (01) ==
LOC: UCCORT 08:32
DX: S63.501A Unspecified sprain of right wrist, initial encounter (principal); S60.211A Contusion of right wrist, initial encounter; W19.XXXA Unspecified fall, initial encounter; Y93.9 Activity, unspecified; Y92.9 Unspecified place or not applicable; Z88.1 Allergy status to other antibiotic agents; Z91.041 Radiographic dye allergy status; F17.210 Nicotine dependence, cigarettes, uncomplicated
CPT/HCPCS: 99212; G0463

== ENCOUNTER 2018-08-03 16:20 | Emergency (ER) | payer BC ==
[2018-08-03] MEDS: Ketorolac INJ* 30 MG/ML 1 ML VIAL IV PUSH ONE (16:57)
[2018-08-03] MEDS: Morphine VIAL* 4 MG/ML VIAL (1 ml vial) IV ONE (16:59)
--- NOTE | 2018-08-03 16:59 | ED ---
Lower Extremity - HPI Summary HPI Summary: 42-year-old female presents with right hip pain today. States she was doing a squat and her right hip popped out. She has history of dislocations. She previously broke her acetabulum many years ago. She denies any metal or screws in her hip. She was admitted here last year for intractable hip pain. She denies any numbness or tingling. No other injury. She was given versad and Zofran by EMS. Has history of asthma and back pain. she states she was seen at [facility] with previous dislocations. - History of Current Complaint Chief Complaint: EDHipPelvisInjury Stated Complaint: HIP PAIN Time Seen by Provider: 08/03/18 16:38 Hx Last Menstrual Period: N/A Pain Intensity: 5 - Allergies/Home Medications Allergies/Adverse Reactions: Allergies Allergy/AdvReac Type Severity Reaction Status Date / Time doxycycline Allergy Nausea And Verified 08/03/18 17:01 Vomiting erythromycin base Allergy Nausea And Verified 08/03/18 17:01 Vomiting ketamine Allergy Agitation Verified 08/03/18 18:49 CT DYE Allergy Itching Uncoded 08/03/18 17:01 PMH/Surg Hx/FS Hx/Imm Hx Endocrine/Hematology History: Denies: Hx Anticoagulant Therapy, Hx Blood Disorders, Hx Thyroid Disease, Hx Anemia, Hx Unexplained Bleeding Cardiovascular History: Denies: Hx Aneurysm, Hx Atrial Fibrillation, Hx Hypertension, Hx Myocardial Infarction, Hx Pacemaker/ICD, Hx Valvular Heart Disease Respiratory History: Reports: Hx Asthma, Hx Chronic Obstructive Pulmonary Disease (COPD) GI History: Reports: Hx Diverticulosis, Hx Gastroesophageal Reflux Disease, Other GI Disorders - Pancreatitis, umbilical hernia repair History: Reports: Hx Kidney Stones, Other Problems/Disorders - urinary retention Musculoskeletal History: Reports: Hx Arthritis - psoriatic arthritis, Hx Back Problems - lumbar/sacral arthritis, DDD Sensory History: Reports: Hx Contacts or Glasses Denies: Hx Hearing Aid Opthamlomology History: Reports: Hx Contacts or Glasses Neurological History: Reports: Hx Migraine Denies: Hx Headaches, Hx Nerve Disease, Hx Peripheral Neuropathy, Hx Spinal Cord Injury Psychiatric History: Reports: Hx Anxiety, Hx Depression Denies: Hx Panic Disorder - Surgical History Surgery Procedure, Year, and Place: HYSTERECTOMY, FB RIGHT KNEE 03/2015. APPENDIX. KNEE 94' Hx Anesthesia Reactions: No - Immunization History Date of Tetanus Vaccine: 2012 Date of Influenza Vaccine: 04/19/16 Infectious Disease History: No Infectious Disease History: Reports: Hx of Known/Suspected MRSA - knee Denies: Hx Shingles, Traveled Outside the [place] in Last 30 Days - Family History Known Family History: Positive: Cardiac Disease, Hypertension, Diabetes, Other - mom and sister postive for DVT - Social History Alcohol Use: None Hx Substance Use: No Substance Use Type: Reports: None Hx Tobacco Use: Yes Smoking Status (MU): Light Every Day Tobacco Smoker Type: Cigarettes Amount Used/How Often: 1/2 pack per day Length of Time of Smoking/Using Tobacco: 18 YRS Have You Smoked in the Last Year: Yes Review of Systems Negative: Fever Negative: Chest Pain Negative: Shortness Of Breath Positive: Myalgia - right hip pain All Other Systems Reviewed And Are Negative: Yes Physical Exam Triage Information Reviewed: Yes Vital Signs On Initial Exam: Initial Vitals Temp Pulse Resp BP Pulse Ox 98.3 F 92 18 136/70 98 08/03/18 16:27 08/03/18 16:27 08/03/18 16:27 08/03/18 16:27 08/03/18 16:27 Vital Signs Reviewed: Yes Appearance: Positive: Well-Appearing Skin: Positive: Warm, Dry Head/Face: Positive: Normal Head/Face Inspection Eyes: Positive: Normal, Conjunctiva Clear ENT: Positive: Pharynx normal Respiratory/Lung Sounds: Positive: Clear to Auscultation, Breath Sounds Present Cardiovascular: Positive: Normal, RRR Musculoskeletal: Positive: Other - right leg external rotated, good pulses Neurological: Positive: Normal Psychiatric: Positive: Normal Procedures - Joint Reduction hip Joint Reduction Site: hip (R) Conscious Sedation: Yes Reduction Attempts: 1 - rotated hip Diagnostics - Vital Signs Vital Signs Temp Pulse Resp BP Pulse Ox 08/03/18 16:27 98.3 F 92 18 136/70 98 - Laboratory Lab Statement: Any lab studies that have been ordered have been reviewed, and results considered in the medical decision making process. - Radiology hip Radiology Interpretation Completed By: Radiologist Summary of Radiographic Findings: IMPRESSION: Radiographic images of the right hip reveal the right femur to be rotated. posteriorly though the head of the femur maintains appropriate contact with the. acetabulum. There is no definite fracture identified. Re-Evaluation - Re-Evaluation First Eval Re-Evaluation Time: 17:30 Change: Improved Comment: some improvement in pain Second Eval Comment: discussed conscious sedation and patient agreed Third Eval Re-Evaluation Time: 20:15 Comment: patient is out of sedation, minimial pain Lower Extremity Course/Dx - Course Course Of Treatment: 42-year-old female presents with right hip pain today. States she was doing a squat and her right hip popped out. She has history of dislocations. She previously broke her acetabulum 12 years ago. She denies any metal or screws in her hip. She was admitted here last year for intractable hip pain. She denies any numbness or tingling. No other injury. She was given versad and Zofran by EMS. Has history of asthma and back pain. on exam tenderness right hip, is external rotated. neurovascular intact. hip xray shows rotation but no dislocation. discussed with dr alvarado and will sedate patient to rotate hip back. with dr alvarado providing sedation I rotated the hip back. patient came out of anasethesia. discussed using crutches to get around. offered pain medication and patient declined. told to follow up with ortho. patient understand and agrees with plan. - Diagnoses Differential Diagnosis/HQI/PQRI: Positive: Contusion, Dislocation, Fracture ( Closed) Provider Diagnoses: Right hip pain Discharge - Sign-Out/Discharge Documenting (check all that apply): Patient Departure - Discharge Plan Condition: Good Disposition: HOME Patient Education Materials: Moderate Sedation (ED), Hip Dislocation (ED) Forms: *Work Release Referrals: Erwin Marrero MD [Primary Care Provider] - Venu Her MD [Medical Doctor] - Additional Instructions: your hip was not dislocated but it is the same instructions follow up with ortho ice Take Tylenol or ibuprofen every 6 hours as needed for pain Return to ED if develop any new or worsening symptoms - Billing Disposition and Condition Condition: GOOD Disposition: Home
[2018-08-03] MEDS ORDERED: KETAMINE HCL* 50 MG/ML 10 ML VIAL ONE (18:04)
[2018-08-03] MEDS: KETAMINE HCL* 50 MG/ML 10 ML VIAL IV ONE (18:49)
[2018-08-03] MEDS: NS 0.9% 1000 ML*IV.FLUID IV ONE (18:50)
--- NOTE | 2018-08-03 18:55 | ED ---
Re-Evaluation - Re-Evaluation First Eval Re-Evaluation Time: 17:30 Change: Improved Comment: some improvement in pain Course/Dx - Course Course Of Treatment: This is a 42-year-old female with a past medical history of labral tear of the right hip. She has had multiple episodes at this hospital and other hospitals are presenting with pain and her right leg and the externally rotated position. I reviewed the medical record for this by Dr. Nicolas Thomas from previous visit. She's had extensive imaging workup in the past revealing no fractures. No dislocations. I evaluated the patient with Bianca Javed physician senior office support assistant sosa for assessment for procedural sedation for realignment of her right hip. Preprocedural assessment includes a normal mental status, right hip held in external rotation, distal pulses intact, no bony tenderness, lungs clear, S1-S2 on cardiac exam. There were no procedural sedation contraindications including sleep apnea or adverse reaction to anesthetic agents. Informed consent was undertaken, the patient understood the risks of apnea possible allergic reaction. She consented to this and was alert and able to make decisions during this time. PROCEDURE NOTE. Procedural Sedation. Sedation PRovideR: Lilliam Borges MD. Details: The patient was placed on waveform capnography for real-time recording, 2 L nasal cannula was administered. Emergency airway equipment was immediately available. I directed that dental appliances be removed. 100 mg of IV ketamine was pushed slowly over a couple of minutes. Approximately 5-10 minutes into the sedation after realignment of her right leg which was apparently simple and without much discomfort, she had a brief spell of apnea. She responded immediately to sternal rub and verbal stimulus. 5 L nasal cannula was applied and her saturations maintained at 95%. She did develop significant anxiety during emergence. She received Versed inadvertently in the ambulance, also morphine in the ED. Synergistic effects of opiates and sedative hypnotics is possible. The patient is successfully recovered from procedural sedation at this time. Would avoid ketamine for any future sedations for her, or consider significant benzodiazepine administration as well. - Diagnoses Provider Diagnoses: Right hip pain Discharge - Sign-Out/Discharge Documenting (check all that apply): Patient Departure - Discharge Plan Condition: Good Disposition: HOME Patient Education Materials: Moderate Sedation (ED), Hip Dislocation (ED) Referrals: Erwin Marrero MD [Primary Care Provider] - Venu Her MD [Medical Doctor] - Additional Instructions: your hip was not dislocated but it is the same instructions follow up with ortho Return to ED if develop any new or worsening symptoms - Billing Disposition and Condition Condition: GOOD Disposition: Home
[2018-08-03 20:58] VITALS: BP 113/76
[2018-08-03] MEDS: Ondansetron INJ* 2 MG/ML VIAL IV ONE (21:25)
== END 2018-08-03 20:30 | disposition home or self-care (01) ==
LOC: ED 16:20
DX: M25.551 Pain in right hip (principal); J44.9 Chronic obstructive pulmonary disease, unspecified; F17.210 Nicotine dependence, cigarettes, uncomplicated; F32.9 Major depressive disorder, single episode, unspecified; F41.9 Anxiety disorder, unspecified; Z87.442 Personal history of urinary calculi
CPT/HCPCS: 96374; 96375; 99285; J1885; J2270

== ENCOUNTER 2019-01-20 12:15 | Emergency (ER) | payer BC ==
[2019-01-20] MEDS ORDERED: fentaNYL* 50 MCG/ML 2 ML VIAL (100 MCG VIAL) IV ONE ×2 (12:19→13:44)
[2019-01-20] MEDS ORDERED: Propranolol IV* 1 MG/ML 1 ML VIAL IV PUSH ONE (12:21)
[2019-01-20] MEDS ORDERED: fentaNYL* 50 MCG/ML 2 ML VIAL (100 MCG VIAL) ONE (12:23)
[2019-01-20] MEDS ORDERED: Propofol* 10 MG/ML 20 ML BTL IV PUSH ONE (12:30)
[2019-01-20] MEDS: Morphine 4 MG/ML VIAL (1 ml) 4 MG/ML VIAL IV ONE ×2 (14:51→14:55)
[2019-01-20] MEDS ORDERED: Ketorolac INJ* 30 MG/ML 1 ML VIAL IV PUSH ONE (14:52)
[2019-01-20] MEDS ORDERED: NS 0.9% 1000 ML** 1,000 ML IV ONE (14:52)
[2019-01-20] MEDS ORDERED: Diazepam SYRINGE* 5 MG/ML 2 ML SYRINGE (10 MG total) IV ONE (15:34)
[2019-01-20] MEDS ORDERED: Diazepam INJ (NF) 5 MG/ML 10 ML VIAL (50 MG TOTAL) IV ONE (16:30)
[2019-01-20 17:32] VITALS: BP 103/68
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
== END 2019-01-20 17:32 | disposition home or self-care (01) ==
LOC: ED 12:15 → MERGE 12:15 → ED 17:32
DX: S39.91XA Unspecified injury of abdomen, initial encounter (principal); M25.551 Pain in right hip; X58.XXXA Exposure to other specified factors, initial encounter
CPT/HCPCS: 72192; 96361; 96374; 96375; 99283; J1800; J1885; J2270; J2704; J3010; J3360